=== PATIENT | male | born 1980 | race American Indian/Alaskan Native ===

== ENCOUNTER 2019-07-11 14:00 | Emergency (ER) | payer BC ==
--- NOTE | 2019-07-11 15:57 | Event Note ---
ED Screening Note Date of service: 07/11/19 Time: 15:55 ED Screening Note: 38 male c/o sob, lightheadedness, chest pain started last night. Chest pain is constant 6/10 sharp. This initial assessment/diagnostic orders/clinical plan/treatment(s) is/are subject to change based on patients health status, clinical progression and re- assessment by fellow clinical providers in the ED. Further treatment and workup at subsequent clinical providers discretion. Patient/guardian urged not to elope from the ED as their condition may be serious if not clinically assessed and managed. Initial orders include:
[2019-07-11 16:18] LABS: Basophils # (Auto) 0.1 K/mm3 (0.0-0.1); Basophils % (Auto) 0.8 % (0.0-1.8); Eosinophils # (Auto) 0.2 K/mm3 (0.0-0.4); Eosinophils % (Auto) 2.2 % (0.0-4.3); Hematocrit 45.1 % (35.5-45.6); Hemoglobin 14.8 gm/dl (11.8-15.2); Lymphocytes # (Auto) 3.7 K/mm3 (1.2-5.4); Lymphocytes % (Auto) 40.7 % (13.4-35.0); Mean Corpuscular HGB Conc 33 % (32-34); Mean Corpuscular Volume 84 fl (84-94); Monocytes # (Auto) 1.1 K/mm3 (0.0-0.8); Monocytes % (Auto) 11.5 % (0.0-7.3); Platelet Count 264 K/mm3 (140-440); Red Blood Count 5.37 M/mm3 (3.65-5.03); Red Cell Distribution Width 13.9 % (13.2-15.2)
--- NOTE | 2019-07-11 16:41 | XRay Report ---
CHEST 2 VIEWS INDICATION / CLINICAL INFORMATION: Chest pain and shortness of breath. Weakness and dizziness. COMPARISON: None available. FINDINGS: SUPPORT DEVICES: None. HEART / MEDIASTINUM: No significant abnormality. LUNGS / PLEURA: No significant pulmonary or pleural abnormality. No pneumothorax. ADDITIONAL FINDINGS: No significant additional findings. IMPRESSION: No acute abnormality of the chest. Signer Name: Jonathon Kovacs MD Signed: 07/11/2019 4:36 PM Workstation Name: [id number]
[2019-07-11 16:45] LABS: Alanine Aminotransferase 36 units/L (7-56); Albumin 4.3 g/dL (3.9-5); BUN/Creatinine Ratio 13; Blood Urea Nitrogen 14 mg/dL (9-20); Calcium 9.2 mg/dL (8.4-10.2); Hemolysis Index 9
[2019-07-11] MEDS ORDERED: TORADOL IM STA (18:14)
--- NOTE | 2019-07-11 19:50 | Emergency Department Report ---
ED General Adult HPI - General Chief complaint: Weakness Stated complaint: SOB/LIGHTHEADED/CHEST DISCOMFORT Time Seen by Provider: 07/11/19 15:54 Source: patient Mode of arrival: Ambulatory Limitations: No Limitations - History of Present Illness Initial comments: 38-year-old male, no significant past medical history presents to the emergency department complaining of a one-day history of chest ache associated with some shortness of breath. States last night around 7 PM he went outside and was overheated and developed a little chest take that has since been improved but he still feels a discomfort to the left substernal aspect of his chest. It does appear to to fluctuate with respiration. Pupils no fever, chills, sweats, nausea, vomiting, hemoptysis, hematemesis, diarrhea, abdominal pain or flank pain or trauma. Reports no new medication. He is worried because a friend of his was around the same age and was later found on the floor. Heart tachycardia wanted to make sure he was not having a heart attack reason for his visit today. Severity scale (0 -10): 0 Quality: aching Improves with: none Associated Symptoms: denies: diaphoresis, fever/chills, malaise, nausea/vomiting, rash, syncope, weakness - Related Data Allergies Allergy/AdvReac Type Severity Reaction Status Date / Time bee venom protein (honey bee) AdvReac Anaphylaxis Verified 07/11/19 14:03 ED Review of Systems ROS: Stated complaint: SOB/LIGHTHEADED/CHEST DISCOMFORT Other details as noted in HPI Comment: All other systems reviewed and negative ED Past Medical Hx - Past Medical History Previous Medical History?: No - Surgical History Additional Surgical History: extremities - Social History Smoking Status: Never Smoker Substance Use Type: None ED Physical Exam - General Limitations: No Limitations General appearance: alert, in no apparent distress - Head Head exam: Present: atraumatic, normocephalic - Eye Eye exam: Present: normal appearance, PERRL, EOMI Pupils: Present: normal accommodation - ENT ENT exam: Present: mucous membranes moist - Neck Neck exam: Present: normal inspection - Respiratory Respiratory exam: Present: normal lung sounds bilaterally. Absent: respiratory distress - Cardiovascular Cardiovascular Exam: Present: regular rate, normal rhythm. Absent: systolic murmur, diastolic murmur, rubs, gallop - GI/Abdominal GI/Abdominal exam: Present: soft, normal bowel sounds - Rectal Rectal exam: Present: deferred - Extremities Exam Extremities exam: Present: normal inspection, normal capillary refill - Back Exam Back exam: Present: normal inspection, full ROM, tenderness, muscle spasm. Absent: CVA tenderness (R), CVA tenderness (L) - Neurological Exam Neurological exam: Present: alert, oriented X3, CN II-XII intact - Psychiatric Psychiatric exam: Present: normal affect, normal mood. Absent: depressed, anxious, flat affect, manic - Skin Skin exam: Present: warm, dry, intact, normal color. Absent: rash ED Course Vital Signs 07/11/19 15:55 Temperature 98.5 F Pulse Rate 75 Respiratory 18 Rate Blood Pressure 151/82 Blood Pressure 151/82 [Right] O2 Sat by Pulse 96 Oximetry ED Medical Decision Making - Lab Data Result diagrams: 07/11/19 16:00 07/11/19 16:00 - Radiology Data Radiology results: report reviewed - Medical Decision Making 38-year-old -[place] male presents with chest discomfort, normal chest x-ray findings. His troponin is negative as well. He is asymptomatic at pr esent. No acute distress, is ambulatory, speaks in full sentences. Discussed need to follow with cardiology for exercise stress test and also advised to obtain a primary care care doctor for routine annual visit in, being that he is approaching the age of 39 Critical care attestation.: If time is entered above; I have spent that time in minutes in the direct care of this critically ill patient, excluding procedure time. ED Disposition Clinical Impression: Chest pain Disposition: DC-01 TO HOME OR SELFCARE Is pt being admited?: No Does the pt Need Aspirin: No Condition: Stable Instructions: Chest Pain (ED) Referrals: [facility] MD MAGGI [Primary Care Provider] - 3-5 Days LINDA BAIN MD [Staff Physician] - 3-5 Days PATRICIA BAIN MD [Staff Physician] - 3-5 Days CIELO BAIN MD [Staff Physician] - 3-5 Days
[2019-07-11 20:15] VITALS: BP 136/78
== END 2019-07-11 20:18 | disposition home or self-care (01) ==
LOC: ED 14:00
DX: R07.89 Other chest pain (principal); R06.02 Shortness of breath; Z91.030 Bee allergy status
CPT/HCPCS: 36415; 71046; 80053; 84484; 85025; 93005; 93010; 99284; J1885